=== PATIENT | female | born 1980 | race Caucasian/White ===

== ENCOUNTER 2017-05-06 06:10 | Inpatient (IN) | payer OTHER ==
[2017-05-06 06:51] VITALS: BMI 33.2
[2017-05-06] MEDS ORDERED: AMPICILLIN SODIUM 2 GM VIAL ONE (06:59)
[2017-05-06] MEDS ORDERED: AMPICILLIN - 2 GM in SODIUM CHLORIDE 100 ML IVPB ONE (07:00)
[2017-05-06 07:12] LABS: BASO % 0.4 % (0-2.0); EOS % 0.6 % (0-4.5); HEMATOCRIT 34.5 % (32.4-45.2); HEMOGLOBIN 11.7 GM/dL (10.7-15.3); LYMPH % 26.3 % (8-40); MCH 31.9 pg (25.7-33.7); MCHC 33.9 g/dl (32.0-36.0); MEAN CELL VOLUME 94.2 fl (80-96); MEAN PLT VOLUME 9.9 fl (7.5-11.1); MONO % 5.7 % (3.8-10.2); PLATELET COUNT 200 K/MM3 (134-434); RBC 3.66 M/mm3 (3.60-5.2); RDW 14.7 % (11.6-15.6); WHITE BLOOD COUNT 9.4 K/mm3 (4.0-10.0)
[2017-05-06] MEDS: DEXTROSE 5%-LACTATED RINGERS 1,000 ML IV SCH (07:15)
[2017-05-06 07:29] LABS: INR 0.88 (0.82-1.09); PROTHROMBIN TIME (PATIENT) 9.9 SEC (9.98-11.88)
[2017-05-06 07:32] LABS: ACTIVATED PTT 24.5 SECONDS (26.9-34.4)
[2017-05-06 08:28] LABS: ANION GAP 10 (8-16); BLOOD UREA NITROGEN 9 mg/dL (7-18); CALCIUM 8.6 mg/dL (8.5-10.1); CHLORIDE 106 mmol/L (98-107); CO2 23 mmol/L (21-32); GLUCOSE,RANDOM 79 mg/dL (74-106); POTASSIUM 3.8 mmol/L (3.5-5.1); SODIUM 139 mmol/L (136-145)
[2017-05-06 08:29] LABS: CREATININE 0.5 mg/dL (0.55-1.02)
[2017-05-06] MEDS ORDERED: TUBERCULIN PPD 5 TU/0.1ML SYRINGE (IN PATIENT USE ONLY) ID ONE (08:30)
[2017-05-06] MEDS ORDERED: AMPICILLIN SODIUM 1 GM VIAL ONE ×4 (11:19→22:11)
[2017-05-06] MEDS: AMPICILLIN - 1 GM in SODIUM CHLORIDE 100 ML IVPB SCH ×4 (11:20→23:00)
--- NOTE | 2017-05-06 11:33 | HP ---
Past Medical History - Primary Care Physician PCP:: Juan Koch - Admission Chief Complaint: 36yo P0 with at EGA 38w6d admitted with PROM since 5am, leaking clear fluids, not in labor. 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: Alzheimer's, CVA, Dementia, Migraine, Multiple Sclerosis, Peripheral Neuropathy, Parkinson's, Seizure, Syncope, TIA, Vertigo, Other Cardiovascular: No: AFIB, Aneurysm, Aortic Insufficiency, Aortic Stenosis, CAD, CHF, Deep Vein Thrombosis, HTN, Hyperlipdemia, TN, Mitral Insufficiency, Mitral Stenosis, Murmur, Pulmonary Hypertension, Other Pulmonary: No: Asthma, Bronchitis, Cancer, COPD, O2 Dependent, Pneumonia, Previously Intubated, Pulmonary Embolus, Pulmonary Fibrosis, Sleep Apnea, Other Gastrointestinal: No: Ascites, Cancer, Constipation, Crohn's Disease, Diverticulitis, Diverticulosis, Esophageal Varices, Gastritis, GERD, GI Bleed, Hemorrhoids, Hiatal Hernia, Inflamatory Bowel Disease, Irritable Bowel Disease, Pancreatitis, Peptic Ulcer Disease, Ulcerative Colitis, Other Hepatobiliary: No: Cirrhosis, Cholelithiasis, Cholecystitis, Choledocholithiasis , Hepatitis A, Hepatitis B, Hepatitis C, Other Renal/: No: Renal Failure, Renal Inusuff, BPH, Cancer, Hematuria, Hemodialysis , Neurogenic Bladder, Renal Calculi, UTI, Other Reproductive: No: Ectopic , Endometriosis, Fibroids, PID, Polycystic Ovary Syndrome, Postmenopausal, Other ...: 1 ...Para: 0 ...Term: 0 ...: 0 ...Spon : 0 ...Induced : 0 ...Multiple Gestation: 0 ...LMP: 08/12/16 ... Weeks Gestation by Dates: 38.1 ...EDC by Dates: 05/19/17 ...EDC by Sono: 05/14/17 Heme/Onc: No: Anemia, B12 Deficiency, Bleeding Disorder, Cancer, Current Chemotherapy, Current Radiation Therapy, Hemochromatosis, Hypercoaguable State, Myeloproliferative Synd, Sickle Cell Disease, Sickle Cell Trait, Thrombocytopenia, Other Infectious Disease: No: AIDS, C-Diff, Herpes Zoster, HIV, MRSA, STD's, Tuberculosis, VREF, Other Psych: No: Addictions, Anxiety, Bipolar, Depression, Panic, Psychosis, Schizophrenia, Other Musculoskeletal: No: Bursitis, Chronic low back pain, Hemiparesis, Hemiplegia, Osteoarthritis, Paraplegia, Other Rheumatology: No: Fibromyalgia, Gout, Lupus, Rheumatoid Arthritis, Sarcoidosis, Vasculitis, Other ENT: No: Allergic Rhinitis, Sinusitis, Other Endocrine: No: Yohannes's Disease, [place]'s Disease, Diabetes Insipidus, Diabetes Mellitus, Hyperparathyroidism, Hyperthyroidism, Hypothyroidism, Osteopenia, SIADH, Other Dermatology: No: Basal Cell, Cellulitis, Eczema, Melanoma, Psoriasis, Squamous Cell, Other - Past Surgical History Past Surgical History: Yes: None Hx Myomectomy: No Hx Transabdominal Cerclage: No - Smoking History Smoking history: Never smoked Have you smoked in the past 12 months: No - Alcohol/Substance Use Hx Alcohol Use: No History of Substance Use: reports: None - Social History Usual Living Arrangement: Yes: With Spouse ADL: Independent History of Recent Travel: No Home Medications - Allergies Allergies/Adverse Reactions: Allergies Allergy/AdvReac Type Severity Reaction Status Date / Time No Known Allergies Allergy Verified 05/06/17 06:39 - Home Medications Home Medications: Ambulatory Orders Vit/Iron Fum/Folic AC [ Tablet] 1 each PO DAILY 05/06/17 Family Disease History - Family Disease History Family Disease History: Other: Father (renal failure), Mother (vWD) Review of Systems - Review of Systems Constitutional: reports: No Symptoms Eyes: reports: No Symptoms HENT: reports: No Symptoms Neck: reports: No Symptoms Cardiovascular: reports: No Symptoms Respiratory: reports: No Symptoms Gastrointestinal: reports: No Symptoms Genitourinary: reports: No Symptoms Breasts: reports: No Symptoms Reported Musculoskeletal: reports: No Symptoms Integumentary: reports: No Symptoms Neurological: reports: No Symptoms Endocrine: reports: No Symptoms Hematology/Lymphatic: reports: No Symptoms Psychiatric: reports: No Symptoms Pain Intensity: 0 Physical Exam - Maternity Vital Signs: Vital Signs Temperature 98.5 F 05/06/17 10:00 Pulse Rate 78 05/06/17 11:00 Respiratory Rate 18 05/06/17 11:00 Blood Pressure 117/66 05/06/17 11:00 O2 Sat by Pulse Oximetry (%) Constitutional: Yes: Well Nourished, No Distress, Calm Eyes: Yes: WNL, Conjunctiva Clear HENT: Yes: WNL, Atraumatic, Normocephalic Neck: Yes: WNL, Supple, Trachea Midline Cardiovascular: Yes: WNL, Regular Rate and Rhythm Lungs: Clear to auscultation, Normal air movement - Abdominal Exam/OB Fundal Height: 39 Number of Fetuses: Single Presentation: Vertex Contractions: No Heart Rate (range): 140 Heart Rate Location: Midline Category: I Accelerations: Uniform Decelerations: None - Vaginal Exam/OB Vaginal Bleediing: No Speculum Exam: No Dilatation (cm): 0.5 Effacement (%): 20 Amniotic Membrane Status: Leaking Nitrazine Test: Positive Amniotic Fluid: Yes: Clear Presentation: Vertex/Position Station: -4 (ADEQUATE PELVIMETRY) - Physical Exam Musculoskeletal: Yes: WNL Extremities: Yes: WNL Edema: No Integumentary: Yes: WNL Deep Tendon Reflex Grade: Normal +2 ...Motor Strength: WNL Psychiatric: Yes: WNL, Alert, Oriented - Labs Lab Results: CBC, BMP 05/06/17 06:40 05/06/17 06:40 Hemorrhage Risk Assessment - Risk Factors Medium Risk Factors: Yes: None High Risk Factors: Yes: None Risk Score: 1 Risk Level: Medium Risk Imaging - Results Ultrasound: Report Reviewed Assessment/Plan 36yo P0 with at EGA 38w6d admitted with PROM since 5am, leaking clear fluids. Pt is not in labor. Fetus with Category I tracing. Adequate gynecoid pelvimetry on exam. We had a long discussion re: risks, benefits, and alternatives of expectant management and labor induction. I explained the options of expectant management awaiting spontaneous labor, induction of labor, and elective section. The risks of uterine tachysystole, distress , uterine rupture, need for emergency C/S, hemorrhage, infection, scarring, etc. were discussed. We also discussed the risks of meconium aspiration, shoulder dystocia, and anesthesia options. The pt requested to proceed with induction. We discussed the alternative methods of induction with Cervidil, Cytotec, and pitocin. The pt prefers Cervidil followed by pitocin, if needed.
[2017-05-06] MEDS ORDERED: DINOPROSTONE 10 MG VAGINAL SUPPOSITORY VG ONE (12:00)
[2017-05-06] MEDS ORDERED: PROMETHAZINE HCL 25 MG/1 ML VIAL ONE (15:42)
[2017-05-06] MEDS ORDERED: BUTORPHANOL TARTRATE 1 MG/ML VIAL ONE ×2 (15:42)
[2017-05-07] MEDS ORDERED: FENTANYL/BUPIVACAINE/NS/PF - PCEA - 50 ML DISP.SYRIN EP ONE ×2 (00:11→04:37)
--- NOTE | 2017-05-07 00:15 | PN ---
Ante-Partal Exam - Subjective Subjective: Pt with contractions and requested epidural Vital Signs: Vital Signs Temperature 98.1 F 05/07/17 00:00 Pulse Rate 68 05/07/17 00:00 Respiratory Rate 20 05/07/17 00:00 Blood Pressure 130/60 05/07/17 00:00 O2 Sat by Pulse Oximetry (%) Bleeding: No Headache: No Visual changes: No Right upper quadrant pain: No Pain (scale 1-10): 8 - Contractions Contractions: Yes Regularity: Irregular (q2-3 min) Intensity: Mod/Strong Monitor Mode: External - Exam during Labor Heart Rate: 140 Variability: Moderate Heart Rate Location: Midline Category: I Monitor Accelerations: Present Monitor Decelerations: None Exam: Vaginal Dilatation (cm): 7 Effacement (%): 90 Amniotic Membrane Status: Leaking Presentation: Vertex Station: 0 - Intrapartum Hemorrhage Risk Medium Risk Factors: None High Risk Factors: None Risk Score: 0 Risk Level: Low Risk - Assessment/Plan Assessment/Plan: 36yo wtih PROM undergoing labor induction. Cervidil was removed. Pt is in active labor. Anesthesia was consulted for epidural. Anticipate .
[2017-05-07] MEDS ORDERED: NALOXONE HCL 0.4 MG/ML VIAL IVPUSH PRN (00:22)
[2017-05-07] MEDS: FENTANYL/BUPIVACAINE/NS/PF - PCEA - 50 ML DISP.SYRIN EP SCH ×2 (00:45→04:40)
[2017-05-07] MEDS ORDERED: ELECTROLYTE-148 SOLN 1,000 ML IV SCH (02:15)
[2017-05-07] MEDS: AMPICILLIN - 1 GM in SODIUM CHLORIDE 100 ML IVPB SCH ×2 (03:00→06:55)
--- NOTE | 2017-05-07 03:58 | PN ---
Ante-Partal Exam - Subjective Subjective: No complaints, s/p epidural. Vital Signs: Vital Signs Temperature 98.6 F 05/07/17 03:00 Pulse Rate 72 05/07/17 03:45 Respiratory Rate 18 05/07/17 03:45 Blood Pressure 135/61 05/07/17 03:45 O2 Sat by Pulse Oximetry (%) 99 05/07/17 03:45 Bleeding: No Headache: No Visual changes: No Right upper quadrant pain: No Pain (scale 1-10): 0 - Contractions Contractions: Yes Regularity: Irregular (q3-5min) Intensity: Moderate Monitor Mode: External - Exam during Labor Heart Rate: 135 Variability: Moderate Heart Rate Location: Midline Category: I Monitor Accelerations: Present Monitor Decelerations: None Exam: Vaginal Dilatation (cm): 9.5 Effacement (%): 100 Amniotic Membrane Status: Leaking Amniotic Fluid: Clear Presentation: Vertex Station: 0 - Intrapartum Hemorrhage Risk Medium Risk Factors: None High Risk Factors: None Risk Score: 0 Risk Level: Low Risk - Assessment/Plan Assessment/Plan: Progressed in active labor Fetus wih category I tracing Continue to monitor labor progress.
[2017-05-07] MEDS: ELECTROLYTE-148 SOLN 1,000 ML IV SCH ×2 (05:00)
[2017-05-07] MEDS ORDERED: OXYTOCIN 15 UNITS/ LR 250 ML 15 UNIT/250 ML INFUS.BAG IVPB SCH (05:15)
[2017-05-07] MEDS ORDERED: LIDOCAINE HCL 1% PRESERVATIVE FREE - 30ML VIAL ONE (07:28)
[2017-05-07] MEDS ORDERED: OXYTOCIN 20 UNITS in 0.9% NS 20 UNIT/1,000 ML INFUS.BAG IV ONE (07:28)
[2017-05-07] MEDS ORDERED: METHYLERGONOVINE MALEATE 0.2 MG/1 ML AMP IM PRN (11:23)
[2017-05-07] MEDS ORDERED: BENZOCAINE 20% 57 GM BOTTLE TP PRN (11:23)
[2017-05-07] MEDS ORDERED: BENZOCAINE 28 GM HEMORRHOIDAL OINTMENT TP PRN (11:23)
[2017-05-07] MEDS ORDERED: WITCH HAZEL 50% (TUCKS) 40 PAD/JAR PAD TP PRN (11:23)
[2017-05-07] MEDS ORDERED: BISACODYL 10 MG SUPP.RECT RC PRN (11:23)
[2017-05-07] MEDS ORDERED: OXYTOCIN 20 UNITS in 0.9% NS 20 UNIT/1,000 ML INFUS.BAG IV SCH (11:30)
[2017-05-07] MEDS ORDERED: IBUPROFEN 600 MG TABLET (FP) PO ONE (12:26)
[2017-05-07] MEDS: IBUPROFEN 600 MG TABLET (FP) PO PRN (12:30)
[2017-05-08] MEDS: ACETAMINOPHEN 325 MG TABLET (FP) PO PRN ×3 (04:50→19:15)
[2017-05-08] MEDS: IBUPROFEN 600 MG TABLET (FP) PO PRN ×3 (04:53→19:19)
[2017-05-08 08:15] LABS: BASO % 0.2 % (0-2.0); EOS % 0.3 % (0-4.5); HEMOGLOBIN 10.5 GM/dL (10.7-15.3); LYMPH % 18.3 % (8-40); MCH 31.2 pg (25.7-33.7); MCHC 32.7 g/dl (32.0-36.0); MEAN CELL VOLUME 95.4 fl (80-96); MEAN PLT VOLUME 9.9 fl (7.5-11.1); MONO % 6.2 % (3.8-10.2); PLATELET COUNT 178 K/MM3 (134-434); RBC 3.36 M/mm3 (3.60-5.2); RDW 15.3 % (11.6-15.6); WHITE BLOOD COUNT 17.7 K/mm3 (4.0-10.0)
--- NOTE | 2017-05-08 11:21 | PN ---
Post Progress Note - Subjective Subjective: No complaints Post Day: 1 Type of Delivery: Vital Signs: Vital Signs Temperature 98 F 05/08/17 06:00 Pulse Rate 70 05/08/17 06:00 Respiratory Rate 18 05/08/17 06:00 Blood Pressure 122/72 05/08/17 06:00 O2 Sat by Pulse Oximetry (%) 99 05/07/17 08:15 Breast Exam: Yes: Soft Uterus: Yes: Fundus Firm, Fundus below umbilicus, Non-tender Abdomen/GI: Yes: Abdomen soft, Passing flatus, Tolerating PO Lochia: Yes: Rubra Lochia, amount: Small Extremities: Yes: Calves non-tender Perineum: Yes: Intact, Laceration Activity: Ambulating - Labs Labs: CBC WBC 17.7 K/mm3 (4.0-10.0) H D 05/08/17 07:28 RBC 3.36 M/mm3 (3.60-5.2) L 05/08/17 07:28 Hgb 10.5 GM/dL (10.7-15.3) L D 05/08/17 07:28 Hct 32.0 % (32.4-45.2) L 05/08/17 07:28 MCV 95.4 fl (80-96) 05/08/17 07:28 MCH 31.2 pg (25.7-33.7) 05/08/17 07:28 MCHC 32.7 g/dl (32.0-36.0) 05/08/17 07:28 RDW 15.3 % (11.6-15.6) 05/08/17 07:28 Plt Count 178 K/MM3 (134-434) 05/08/17 07:28 MPV 9.9 fl (7.5-11.1) 05/08/17 07:28 Neutrophils % 75.0 % (42.8-82.8) 05/08/17 07:28 Lymphocytes % 18.3 % (8-40) D 05/08/17 07:28 Monocytes % 6.2 % (3.8-10.2) 05/08/17 07:28 Eosinophils % 0.3 % (0-4.5) 05/08/17 07:28 Basophils % 0.2 % (0-2.0) 05/08/17 07:28 Assessment/Plan 36yo P2 s/p , doing well stable, afebrile. care instructions reviewed. Continue routine care. Ambulation encouraged Discharge instruction reviewed.
[2017-05-08] MEDS: PRENATAL VITAMINS W/ FOLIC ACID TABLET (FP) PO SCH (11:24)
--- NOTE | 2017-05-08 11:24 | DS ---
Physical Exam-ELIGIBILITY WORKER Vital Signs: Vital Signs Temperature 98 F 05/08/17 06:00 Pulse Rate 70 05/08/17 06:00 Respiratory Rate 18 05/08/17 06:00 Blood Pressure 122/72 05/08/17 06:00 O2 Sat by Pulse Oximetry (%) 99 05/07/17 08:15 Constitutional: Yes: Well Nourished, No Distress, Calm Eyes: Yes: WNL, Conjunctiva Clear HENT: Yes: WNL, Atraumatic, Normocephalic Neck: Yes: WNL, Supple, Trachea Midline Cardiovascular: Yes: WNL, Regular Rate and Rhythm Respiratory: Yes: WNL, Regular, CTA Bilaterally Gastrointestinal: Yes: WNL, Normal Bowel Sounds, Soft ...Rectal Exam: Yes: Deferred Internal Exam Deferred: Yes ....Post : Yes: Uterus firm, Uterus non-tender, Slight lochia rubra Breast(s): Yes: WNL Musculoskeletal: Yes: WNL Extremities: Yes: WNL Integumentary: Yes: WNL Neurological: Yes: WNL, Alert, Oriented ...Motor Strength: WNL Psychiatric: Yes: WNL, Alert, Oriented Labs: CBC, BMP 05/08/17 07:28 05/06/17 06:40 Delivery - Delivery Vaginal Delivery: No Problems, Spontaneous Type of Anesthesia: Epidural Episiotomy/Laceration: 2nd degree EBL (cc): 300 Delivery, Single - Stages of Labor Date 1st Stage Initiatied: 05/06/17 Time 1st Stage Initiated: 05:00 Date 2nd Stage Initiated: 05/07/17 Time 2nd Stage Initiated: 07:30 Date of Delivery: 05/07/17 Time of Delivery: 10:13 Time Placenta Delivered: 10:20 Placenta: Yes: Spontaneous, Normal Configuration - Condition of [employer] Manager Present: No Gender: Male Weight: 3.062 kg Position: Left, OA Total Hours ROM (Hrs/Mins): 29HR 20 MIN - 1 Minute Total Score: 9 5 Minutes Total Score: 9 - [place] Feeding Plan Initial Plan: Exclusive throughout hospitalization Discharge Summary Reason For Visit: ADMIT LABOR at term, PROM Procedures: Principal: Other Procedures: Labor induction, insertion of cervical dilator Hospital Course: Normal recovery Condition: Good - Instructions Diet, Activity, Other Instructions: Physical activity Resume your normal everyday activity as tolerated no heavy lifting or exercise until seen by your surgeon. You may walk unlimited kaiden of and climb stairs. You may resume driving the car when you feel safe and comfortable behind the wheel. No sexual activity as instructed. Wound care If you have a bandage, leave it on, and keep dry for 48-72 hours. After that time discard the outer bandage. If they are tapes on the skin under the out of bandage leave them in place. They will peel off in the next 7 to 10 days. Do Not Peel them off. You may shower the day after surgery. If there are tapes present on the skin, you may shower over them. Diet There are no dietary restrictions. Eat healthy, high-fiber foods. Drink 6 to 8 glasses of liquid each day. This will assist in keeping your bowels are regular. Pain management You may take Tylenol or acetaminophen or Ibuprofen (for example, Motrin, Advil etc.) from my pain prescription medication is ordered should be taken as prescribed for moderate to severe pain. Call MD for any of the following: Severe pain not relieved by medication Fever of 101 or higher Excessive bleeding or drainage on dressing Inability to urinate Referrals: Juan Koch MD [Staff Physician] - Disposition: HOME - Home Medications Comprehensive Discharge Medication List: Ambulatory Orders Vit/Iron Fum/Folic AC [ Tablet] 1 each PO DAILY 05/06/17
[2017-05-08] MEDS: DEXTROSE 5%-LACTATED RINGERS 1,000 ML IV SCH (18:17)
[2017-05-08] MEDS: FENTANYL/BUPIVACAINE/NS/PF - PCEA - 50 ML DISP.SYRIN EP SCH (18:18)
[2017-05-08] MEDS: ELECTROLYTE-148 SOLN 1,000 ML IV SCH (18:18)
[2017-05-08] MEDS ORDERED: SENNOSIDES/DOCUSATE COMBO (SENNA PLUS) TABLET (UD) PO PRN (22:00)
--- NOTE | 2017-05-09 10:12 | PN ---
Post Progress Note - Subjective Subjective: feels well, voiding, +BM, eating regular diet Post Day: 2 Type of Delivery: Vital Signs: Vital Signs Temperature 98.4 F 05/08/17 22:00 Pulse Rate 77 05/08/17 22:00 Respiratory Rate 18 05/08/17 22:00 Blood Pressure 121/71 05/08/17 22:00 O2 Sat by Pulse Oximetry (%) 99 05/07/17 08:15 Breast Exam: Yes: Soft Uterus: Yes: Fundus Firm Abdomen/GI: Yes: Abdomen soft Lochia: Yes: Rubra Lochia, amount: Small Extremities: Yes: Calves non-tender Perineum: Yes: Laceration (using Tucks) Activity: Ambulating - Labs Labs: CBC WBC 17.7 K/mm3 (4.0-10.0) H D 05/08/17 07:28 RBC 3.36 M/mm3 (3.60-5.2) L 05/08/17 07:28 Hgb 10.5 GM/dL (10.7-15.3) L D 05/08/17 07:28 Hct 32.0 % (32.4-45.2) L 05/08/17 07:28 MCV 95.4 fl (80-96) 05/08/17 07:28 MCH 31.2 pg (25.7-33.7) 05/08/17 07:28 MCHC 32.7 g/dl (32.0-36.0) 05/08/17 07:28 RDW 15.3 % (11.6-15.6) 05/08/17 07:28 Plt Count 178 K/MM3 (134-434) 05/08/17 07:28 MPV 9.9 fl (7.5-11.1) 05/08/17 07:28 Neutrophils % 75.0 % (42.8-82.8) 05/08/17 07:28 Lymphocytes % 18.3 % (8-40) D 05/08/17 07:28 Monocytes % 6.2 % (3.8-10.2) 05/08/17 07:28 Eosinophils % 0.3 % (0-4.5) 05/08/17 07:28 Basophils % 0.2 % (0-2.0) 05/08/17 07:28 Assessment/Plan 36 yo s/p VSS, Afebrile doing well pereneal pain, Lidocaine jelly to pharmacy, nursing will teach further pericare wel healing laceration Rh positive Baby circumcised d/c home NPV for 6wks RTO 4-6 wks
[2017-05-09] MEDS: PRENATAL VITAMINS W/ FOLIC ACID TABLET (FP) PO SCH (10:36)
[2017-05-09] MEDS: IBUPROFEN 600 MG TABLET (FP) PO PRN (10:39)
[2017-05-09] MEDS: ACETAMINOPHEN 325 MG TABLET (FP) PO PRN (10:40)
[2017-05-09 12:10] VITALS: BP 129/71; PULSE 78; TEMP 99.1
== END 2017-05-09 13:05 | disposition home or self-care (01) | DRG 560 ==
LOC: JLDR 06:10 → J3W 05-07 13:15
PROVIDERS: ADMIT Obstetrics & Gynecology; ATTEND Obstetrics & Gynecology
PROC: 3E0P7VZ Introduction of Hormone into Female Reproductive, Via Natural or Artificial Opening (ICD-10-PCS; 2017-05-06)
PROC: 10E0XZZ Delivery of Products of Conception, External Approach (ICD-10-PCS; principal; 2017-05-07)
PROC: 0W8NXZZ Division of Female Perineum, External Approach (ICD-10-PCS; 2017-05-07)
PROC: 0KQM0ZZ Repair Perineum Muscle, Open Approach (ICD-10-PCS; 2017-05-07)
DX: O70.1 Second degree perineal laceration during delivery (principal); O42.92 Full-term premature rupture of membranes, unspecified as to length of time between rupture and onset of labor; Z3A.38 38 weeks gestation of pregnancy; Z22.330 Carrier of Group B streptococcus; O34.13 Maternal care for benign tumor of corpus uteri, third trimester; Z37.0 Single live birth
CPT/HCPCS: 36415; 59409; 80048; 85025; 85610; 85730; 86593; 86850; 86900; 86901